=== PATIENT | female | born 1955 | race Caucasian/White ===

== ENCOUNTER 2016-10-03 21:12 | Emergency (ER) | payer OTHER ==
[2016-10-03] MEDS ORDERED: NS 1,000 ML IV ONE ×2 (22:00→23:02)
[2016-10-03] MEDS ORDERED: ONDANSETRON 4 MG/2 ML VIAL IVP ONE (22:00)
--- NOTE | 2016-10-03 22:03 | EDPHY ---
H & P Stated Complaint: NVD, bloody diarrhea, syncope Time Seen by Provider: 10/03/16 21:44 HPI/ROS: CHIEF COMPLAINT: Nausea vomiting diarrhea and syncope HISTORY OF PRESENT ILLNESS: Patient is a 61-year-old female who was exposed to a friend with food poisoning around 4 o'clock this afternoon. About an hour later she began having abdominal cramping, diarrhea and a single episode of self -induced vomiting. She had a large amount of diarrhea initially states that she felt much better. Since then she has had 3 episodes of small mucousy/ bloody stools. She has not fainted again. She denies chest pain or shortness of breath. She has not had a fever but did have chills. No recent antibiotics or travel. REVIEW OF SYSTEMS: Constitutional: denies: chills, fever, recent illness, recent injury EENTM: denies: blurred vision, double vision, nose congestion Respiratory: denies: cough, shortness of breath Cardiac: denies: chest pain, irregular heart rate, lightheadedness, palpitations Gastrointestinal/Abdominal: See HPI Genitourinary: denies: dysuria, frequency, hematuria, pain Musculoskeletal: denies: joint pain, muscle pain Skin: denies: lesions, rash, jaundice, bruising Neurological: denies: headache, numbness, paresthesia, tingling, dizziness, weakness Hematologic/Lymphatic: denies: blood clots, easy bleeding, easy bruising Immunologic/allergic: denies: HIV/AIDS, transplant EXAM: GENERAL: Well-appearing, well-nourished and in no acute distress. HEAD: Atraumatic, normocephalic. EYES: Pupils equal round and reactive to light, extraocular movements intact, sclera anicteric, conjunctiva are normal. ENT: TMs normal, nares patent, oropharynx clear without exudates. Moist mucous membranes. NECK: Normal range of motion, supple without lymphadenopathy or JVD. LUNGS: Breath sounds clear to auscultation bilaterally and equal. No wheezes rales or rhonchi. HEART: Regular rate and rhythm without murmurs, rubs or gallops. ABDOMEN: Soft, nontender, normoactive bowel sounds. No guarding, no rebound. No masses appreciated. BACK: No CVA tenderness, no spinal tenderness, step-offs or deformities EXTREMITIES: Normal range of motion, no pitting or edema. No clubbing or cyanosis. NEUROLOGICAL: Cranial nerves II through XII grossly intact. Normal speech, normal gait. 5/5 strength, normal movement in all extremities, normal sensation PSYCH: Normal mood, normal affect. SKIN: Warm, dry, normal turgor, no visible rashes or lesions. Source: Patient Exam Limitations: No limitations - Personal History Current Tetanus/Diphtheria Vaccine: Yes Current Tetanus Diphtheria and Acellular Pertussis (TDAP): Yes - Medical/Surgical History Hx Asthma: No Hx Chronic Respiratory Disease: No Hx Diabetes: No Hx Cardiac Disease: No Hx Renal Disease: No Hx Cirrhosis: No Hx Alcoholism: No Hx HIV/AIDS: No Hx Splenectomy or Spleen Trauma: No Other PMH: LUMPECTOMY BREAST, osteopenia, resolved hemorrhoid - Family History Significant Family History: No pertinent family hx - Social History Smoking Status: Never smoked Alcohol Use: Sober Drug Use: None Constitutional: Initial Vital Signs Temperature (C) 36.9 C 10/03/16 21:14 Heart Rate 72 10/03/16 21:14 Respiratory Rate 18 10/03/16 21:14 Blood Pressure 116/60 10/03/16 21:14 O2 Sat (%) 95 10/03/16 21:14 O2 Delivery Mode Room Air Allergies/Adverse Reactions: Sulfa (Sulfonamide Antibiotics) Allergy (Verified 04/04/14 02:31) Home Medications: Medication Instructions Recorded LORazepam [Ativan] 1 mg PO 04/04/14 QUEtiapine FUMARATE [Seroquel 25 6.25 mg PO DAILY 04/04/14 mg (RX)] Xanax 10/03/16 Medical Decision Making - Diagnostics EKG Interpretation: An EKG obtained and was read and documented in trace view. Please see trace view for full reading and report.. Sinus rhythm, no acute ischemic changes or arrhythmias she does have first-degree block that is similar to previous EKG. ED Course/Re-evaluation: Patient brought in a stool sample. We will send to the lab. Currently she is feeling rather well. 10:40 p.m. the patient is feeling much better. Her abdominal exam remains benign. I will treat her with another L of fluid. Her lab work is reassuring. The patient multiple questions about gastritis which we discussed. She is not particularly concerned about the syncopal episode. She states that she has presyncope fairly commonly when she has abdominal cramping. She states that she has sensitive stomach and this happens to her lot. She denies chest pain or shortness of breath. 10:50 p.m. I spoke with the lab. Her GI pathogen panel will not come back until tomorrow. She is stable currently and antibiotics may be more detrimental than helpful. Recommended deferring antibiotics until her pathogen panel has returned. She has not had any more episodes of diarrhea or bloody stool since arriving. She has been rehydrated. 11:00 p.m. the patient is happy with this plan. She is already feeling much better. Abdominal exam remains benign. I will prepare paperwork for discharge after this last L of fluids. Differential Diagnosis: Partial list of the Differential diagnosis considered include but were not limited to; gastritis, irritable bowel disease ulcerative colitis and although unlikely based on the history and physical exam, I also considered diverticulitis, volvulus, peptic ulcer disease, hemorrhage. I discussed these differential diagnoses and the plan with the patient as well as the usual and expected course. The patient understands that the diagnosis is provisional and that in medicine we are not always correct and that further workup is often warranted. Usual and customary warnings were given. All of the patient's questions were answered. The patient was instructed to return to the emergency department should the symptoms at all worsen or return, otherwise to followup with the physician as we discussed. - Data Points Laboratory Results: Laboratory Results 10/03/16 21:40 10/03/16 21:40 Microbiology Results: MICROBIOLOGY 10/03/16 22:00 Stool Gastrointestinal Tract Panel (PCR) - Final No Organism Detected Medications Given: Discontinued Medications Sodium Chloride (Ns) 1,000 mls @ 0 mls/hr IV ONCE ONE PRN Reason: Wide Open Stop: 10/03/16 22:01 Last Admin: 10/03/16 22:07 Dose: 1,000 mls Sodium Chloride (Ns) 1,000 mls @ 0 mls/hr IV ONCE ONE PRN Reason: Wide Open Stop: 10/03/16 23:03 Last Admin: 10/03/16 23:03 Dose: 1,000 mls Ondansetron HCl (Zofran) 4 mg IVP EDNOW ONE Stop: 10/03/16 22:01 Last Admin: 10/03/16 22:09 Dose: Not Given Departure - Departure Disposition: Home, Routine, Self-Care Clinical Impression: Diarrhea Qualifiers: Diarrhea type: unspecified type Qualified Code(s): R19.7 - Diarrhea, unspecified Syncope Qualifiers: Syncope type: unspecified Qualified Code(s): R55 - Syncope and collapse Condition: Fair Instructions: Dehydration (ED), Syncope (ED), Acute Diarrhea (ED) Referrals: Rupa Barron MD [Primary Care Provider] - As per Instructions
[2016-10-03 22:07] LABS: % IMMATURE GRANULYOCYTES 0.5 % (0.0-1.1); ABSOLUTE IMMATURE GRANULOCYTES 0.05 10^3/uL (0.00-0.10); ADD DIFF? NO; ADD MORPH? NO; ADD SCAN? NO; ATYPICAL LYMPHOCYTE FLAG 0 (0-99); FRAGMENT RBC FLAG 0 (0-99); HEMATOCRIT 36.5 % (38.0-47.0); HEMOGLOBIN 12.2 g/dL (12.6-16.3); LEFT SHIFT FLG 0 (0-99); LIPEMIA HEMOLYSIS FLAG 80 (0-99); MEAN CELL HEMOGLOBIN 30.1 pg (27.9-34.1); MEAN CELL HEMOGLOBIN CONCENTR. 33.4 g/dL (32.4-36.7); MEAN CELL VOLUME 90.1 fL (81.5-99.8); PLATELET CLUMPS FLAG 0 (0-99); PLATELET COUNT 218 10^3/uL (150-400); RED BLOOD CELL COUNT 4.05 10^6/uL (4.18-5.33); RED CELL DISTRIBUTION WIDTH 11.9 % (11.5-15.2)
[2016-10-03 22:09] VITALS: RESP 16
[2016-10-03 22:13] LABS: ALANINE AMINOTRANSFERASE 42 IU/L (9-52); ALBUMIN 4.3 g/dL (3.5-5.0); ALKALINE PHOSPHATASE 77 IU/L (38-126); ANION GAP 11 mEq/L (8-16); ASPARTATE AMINOTRANSFERASE 30 IU/L (14-46); BILIRUBIN,TOTAL 0.5 mg/dL (0.1-1.4); BILIRUBIN-CONJUGATED 0.4 mg/dL (0.0-0.5); BILIRUBIN-UNCONJUGATED 0.1 mg/dL (0.0-1.1); CALCIUM 9.1 mg/dL (8.5-10.4); CARBON DIOXIDE 22 mEq/l (22-31); CHLORIDE 103 mEq/L (97-110); GLOMERULAR FILTRATION RATE 56; GLUCOSE 121 mg/dL (70-100); POTASSIUM 4.1 mEq/L (3.5-5.2); SODIUM 136 mEq/L (134-144); TOTAL PROTEIN 6.6 g/dL (6.3-8.2)
--- NOTE | 2016-10-03 23:07 | CPEKG ---
Heart Rate: 60 RR Interval: 1000 P-R Interval: 296 QRSD Interval: 96 QT Interval: 440 QTC Interval: 440 P Scurry: -35 QRS Scurry: 90 T Wave Scurry: 64 EKG Severity - ABNORMAL ECG - EKG Impression: SINUS RHYTHM EKG Impression: FIRST DEGREE AV BLOCK EKG Impression: BORDERLINE RIGHT AXIS DEVIATION EKG Impression: BORDERLINE T ABNORMALITIES, ANT-LAT LEADS Electronically Signed By: Mckinley Storm 03-Oct-2016 23:08:53
[2016-10-04 00:33] VITALS: BP 124/76; PULSE 86; TEMP 98.6; O2SAT 98
== END 2016-10-04 00:33 | disposition home or self-care (01) ==
DX: R19.7 Diarrhea, unspecified (principal); R55 Syncope and collapse

== ENCOUNTER → 2017-12-20 | Outpatient (CLI) | payer OTHER | LOC: CIMAGING 12:26 | PROVIDERS: ATTEND Family Medicine | DX: Z12.31 Encounter for screening mammogram for malignant neoplasm of breast (principal) ==